=== PATIENT | female | born 1940 | race Caucasian/White ===

== ENCOUNTER 2022-06-28 16:34 | Emergency (ER) | payer MEDICARE, BC ==
[2022-06-28 16:46] VITALS: TEMP 98.4
[2022-06-28] MEDS ORDERED: ONDANSETRON 4 MG/2 ML VIAL IVP STA (16:56)
[2022-06-28] MEDS ORDERED: PANTOPRAZOLE 40 MG/10 ML VIAL IVP STA (16:56)
[2022-06-28 17:14] LABS: Anisocytosis Slight; Basophils # (A) 0.1 k/uL (0-0.2); Basophils % (A) 1 %; Eosinophils % (A) 1 %; HCT 39.5 % (34.0-46.0); Hypochromasia Slight; Lymphocytes # (A) 1.6 k/uL (1.0-4.8); Lymphocytes % (A) 20 %; MCH 28.6 pg (25.0-35.0); MCV 86.7 fL (80.0-100.0); Mean Platelet Volume 7.5; Monocytes # (A) 0.3 k/uL (0-1.0); Monocytes % (A) 4 %; Neutrophils # (A) 5.9 k/uL (1.3-7.7); Neutrophils % (A) 74 %; Platelet Count 644 k/uL (150-450); RBC 4.55 m/uL (3.80-5.40); RDW 16.9 % (11.5-15.5); WBC 7.9 k/uL (3.8-10.6)
[2022-06-28 17:23] LABS: Albumin 3.4 g/dL (3.5-5.0); Calcium 8.7 mg/dL (8.4-10.2); Magnesium 1.7 mg/dL (1.6-2.3); Total Bilirubin 0.7 mg/dL (0.2-1.3); Total Protein 6.6 g/dL (6.3-8.2)
[2022-06-28 17:30] LABS: INR 1.1 (<1.2); Partial Thromboplastin Time 22.5 sec (22.0-30.0); Prothrombin Time 11.7 sec (9.0-12.0)
--- NOTE | 2022-06-28 18:35 | ED ---
GI Bleed HPI - General Chief complaint: GI Bleed Stated complaint: GI Bleed Time Seen by Provider: 06/28/22 16:36 Source: patient Mode of arrival: EMS Limitations: no limitations - History of Present Illness Initial comments: 82-year-old female with past medical history of A. fib not on any anticoagulation, coronary artery disease on Plavix, hemorrhagic anemia secondary to bleeding duodenal ulcer who presents to the emergency department with coffee-ground emesis. She resides at [facility]. She had an episode of coffee ground emesis at 11:00 this morning. She was provided with a Carafate. She then had a second episode around 3:15 and was transferred to our facility for further evaluation. Patient is in A. fib before EMS however when tr ansferred for facility and placed on the monitor she does convert to normal sinus rhythm. The patient has a history of mild dementia and therefore cannot provide much history. She denies that she is in any pain. Upon reading the patient's chart she was hospitalized in March where she had an EGD that demonstrated a duodenal ulcer and gastritis. She had significant blood loss with anemia. Patient denies any black or bloody stools to me. No chest pain or shortness of breath. Remainder of HPI is limited - Related Data Allergies Allergy/AdvReac Type Severity Reaction Status Date / Time No Known Allergies Allergy Verified 06/28/22 16:46 Review of Systems ROS Statement: Those systems with pertinent positive or pertinent negative responses have been documented in the HPI. ROS Other: All systems not noted in ROS Statement are negative. Past Medical History Past Medical History: Atrial Fibrillation, Coronary Artery Disease (CAD), Chest Pain / Angina, Hypertension, Myocardial Infarction ([place]), Myocardial Infarction (non Q-wave) Additional Past Medical History / Comment(s): dementia hemmorhagic anemia History of Any Multi-Drug Resistant Organisms: None Reported Past Psychological History: Depression Smoking Status: Former smoker Past Alcohol Use History: None Reported Past Drug Use History: None Reported General Exam Limitations: altered mental status (poor historian) General appearance: alert, in no apparent distress Head exam: Present: atraumatic, normocephalic, normal inspection Eye exam: Present: normal appearance, PERRL, EOMI. Absent: scleral icterus, conjunctival injection, periorbital swelling ENT exam: Present: normal exam, mucous membranes moist Neck exam: Present: normal inspection. Absent: tenderness, meningismus, lymphadenopathy Respiratory exam: Present: normal lung sounds bilaterally. Absent: respiratory distress, wheezes, rales, rhonchi, stridor Cardiovascular Exam: Present: regular rate, normal rhythm, normal heart sounds. Absent: systolic murmur, diastolic murmur, rubs, gallop, clicks GI/Abdominal exam: Present: soft, normal bowel sounds. Absent: distended, tenderness, guarding, rebound, rigid Extremities exam: Present: normal inspection, full ROM, normal capillary refill. Absent: tenderness, pedal edema, joint swelling, calf tenderness Back exam: Present: normal inspection Neurological exam: Present: alert, CN II-XII intact Psychiatric exam: Present: normal affect, normal mood Skin exam: Present: warm, dry, intact, normal color. Absent: rash Course Vital Signs 06/28/22 06/28/22 06/28/22 16:40 16:54 17:28 Temperature 98.4 F Pulse Rate 81 88 79 Respiratory 16 16 20 Rate Blood Pressure 134/78 134/78 134/74 O2 Sat by Pulse 96 98 99 Oximetry 06/28/22 20:34 Temperature Pulse Rate 71 Respiratory 18 Rate Blood Pressure 129/75 O2 Sat by Pulse 98 Oximetry - Reevaluation(s) Reevaluation #1: Spoke with [facility] - they can accept the patient however the patient will be placed on a wait list. Unsure if the patient would be able to transfer to their facility tonight or even tomorrow. I informed the daughter of this and she was agreeable to try [facility] for transfer 06/28/22 18:15 Reevaluation #2: Spoke with [facility] who accepted the patient for transport. Accepting [facility] is Dr. Burton. EMS paged 06/28/22 18:25 Reevaluation #3: Patient's daughter has informed me that she has changed her mind. Would prefer to go to [facility] as this facility is closer for her brother to commute to. Informed her that we have an accepting hospital at [facility] who can take her immediately. She would like me to cancel this transfer and try [facility] 06/28/22 18:30 Reevaluation #4: Spoke with [facility] who is on a wait list. Longest patient has been waiting 7 days for transfer 06/28/22 19:30 Reevaluation #5: [facility] is not accepting patients for transfer at this time 06/28/22 19:38 Spoke with the patient's daughter again about transfer refusals. She is agreeable to go to [facility] 06/28/22 19:45 Medical Decision Making - Medical Decision Making Upon arrival patient was placed into room 6. A thorough history and physical exam was performed. IV access established. Laboratory studies were conducted. Patient was given 4 mg of Zofran and 80 mg of proton. Laboratory studies are reviewed by myself. Hemoglobin stable at 13. Patient is hemodynamically stable on vitals. I did discuss diagnosis, differential and treatment options. Informed the patient that I would like to observe her in the hospital however we do not have GI capabilities at our facility. If patient were hospitalized at our facility there be significant risk if the patient would start bleeding. Family understood this. Attempted transfer to multiple facilities however daughter did change her mind after acceptance to [facility]. We additionally called [facility] before daughter agreed to transfer to [facility]. Accepting physician is Dr. Burton. COBRA forms were signed. Patient and her daughter were aware of the risks and benefits of transfer patient was transferred in stable condition - Lab Data Result diagrams: 06/28/22 16:58 06/28/22 16:58 Lab Results 06/28/22 06/28/22 06/28/22 Range/Units 16:48 16:58 16:58 WBC 7.9 (3.8-10.6) k/uL RBC 4.55 (3.80-5.40) m/uL Hgb 13.0 (11.4-16.0) gm/dL Hct 39.5 (34.0-46.0) % MCV 86.7 (80.0-100.0) fL MCH 28.6 (25.0-35.0) pg MCHC 33.0 (31.0-37.0) g/dL RDW 16.9 H (11.5-15.5) % Plt Count 644 H (150-450) k/uL MPV 7.5 Neutrophils % 74 % Lymphocytes % 20 % Monocytes % 4 % Eosinophils % 1 % Basophils % 1 % Neutrophils # 5.9 (1.3-7.7) k/uL Lymphocytes # 1.6 (1.0-4.8) k/uL Monocytes # 0.3 (0-1.0) k/uL Eosinophils # 0.0 (0-0.7) k/uL Basophils # 0.1 (0-0.2) k/uL Hypochromasia Slight Anisocytosis Slight PT 11.7 (9.0-12.0) sec INR 1.1 (<1.2) APTT 22.5 (22.0-30.0) sec Sodium (137-145) mmol/L Potassium (3.5-5.1) mmol/L Chloride (98-107) mmol/L Carbon Dioxide (22-30) mmol/L Anion Gap mmol/L BUN (7-17) mg/dL Creatinine (0.52-1.04) mg/dL Est GFR (CKD-EPI)AfAm (>60 ml/min/1.73 sqM) Est GFR (CKD-EPI)NonAf (>60 ml/min/1.73 sqM) Glucose (74-99) mg/dL Plasma Lactic Acid Cipriano (0.7-2.0) mmol/L Calcium (8.4-10.2) mg/dL Magnesium (1.6-2.3) mg/dL Total Bilirubin (0.2-1.3) mg/dL AST (14-36) U/L ALT (4-34) U/L Alkaline Phosphatase (38-126) U/L Troponin I (0.000-0.034) ng/mL Total Protein (6.3-8.2) g/dL Albumin (3.5-5.0) g/dL Lipase (23-300) U/L Blood Type O Positive Blood Type Confirm Blood Type Recheck No Previous Record Bld Type Recheck Status CABO Indicated Antibody Screen NEGATIVE Spec Expiration Date 07/01/2022 - 234706/28/22 06/28/22 06/28/22 Range/Units 16:58 16:58 16:58 WBC (3.8-10.6) k/uL RBC (3.80-5.40) m/uL Hgb (11.4-16.0) gm/dL Hct (34.0-46.0) % MCV (80.0-100.0) fL MCH (25.0-35.0) pg MCHC (31.0-37.0) g/dL RDW (11.5-15.5) % Plt Count (150-450) k/uL MPV Neutrophils % % Lymphocytes % % Monocytes % % Eosinophils % % Basophils % % Neutrophils # (1.3-7.7) k/uL Lymphocytes # (1.0-4.8) k/uL Monocytes # (0-1.0) k/uL Eosinophils # (0-0.7) k/uL Basophils # (0-0.2) k/uL Hypochromasia Anisocytosis PT (9.0-12.0) sec INR (<1.2) APTT (22.0-30.0) sec Sodium 142 (137-145) mmol/L Potassium 4.0 (3.5-5.1) mmol/L Chloride 106 (98-107) mmol/L Carbon Dioxide 25 (22-30) mmol/L Anion Gap 11 mmol/L BUN 17 (7-17) mg/dL Creatinine 0.92 (0.52-1.04) mg/dL Est GFR (CKD-EPI)AfAm 66 (>60 ml/min/1.73 sqM) Est GFR (CKD-EPI)NonAf 58 (>60 ml/min/1.73 sqM) Glucose 94 (74-99) mg/dL Plasma Lactic Acid Cipriano 1.8 (0.7-2.0) mmol/L Calcium 8.7 (8.4-10.2) mg/dL Magnesium 1.7 (1.6-2.3) mg/dL Total Bilirubin 0.7 (0.2-1.3) mg/dL AST 20 (14-36) U/L ALT 13 (4-34) U/L Alkaline Phosphatase 105 (38-126) U/L Troponin I <0.012 (0.000-0.034) ng/mL Total Protein 6.6 (6.3-8.2) g/dL Albumin 3.4 L (3.5-5.0) g/dL Lipase 40 (23-300) U/L Blood Type Blood Type Confirm Blood Type Recheck Bld Type Recheck Status Antibody Screen Spec Expiration Date 06/28/22 Range/Units 17:01 WBC (3.8-10.6) k/uL RBC (3.80-5.40) m/uL Hgb (11.4-16.0) gm/dL Hct (34.0-46.0) % MCV (80.0-100.0) fL MCH (25.0-35.0) pg MCHC (31.0-37.0) g/dL RDW (11.5-15.5) % Plt Count (150-450) k/uL MPV Neutrophils % % Lymphocytes % % Monocytes % % Eosinophils % % Basophils % % Neutrophils # (1.3-7.7) k/uL Lymphocytes # (1.0-4.8) k/uL Monocytes # (0-1.0) k/uL Eosinophils # (0-0.7) k/uL Basophils # (0-0.2) k/uL Hypochromasia Anisocytosis PT (9.0-12.0) sec INR (<1.2) APTT (22.0-30.0) sec Sodium (137-145) mmol/L Potassium (3.5-5.1) mmol/L Chloride (98-107) mmol/L Carbon Dioxide (22-30) mmol/L Anion Gap mmol/L BUN (7-17) mg/dL Creatinine (0.52-1.04) mg/dL Est GFR (CKD-EPI)AfAm (>60 ml/min/1.73 sqM) Est GFR (CKD-EPI)NonAf (>60 ml/min/1.73 sqM) Glucose (74-99) mg/dL Plasma Lactic Acid Cipriano (0.7-2.0) mmol/L Calcium (8.4-10.2) mg/dL Magnesium (1.6-2.3) mg/dL Total Bilirubin (0.2-1.3) mg/dL AST (14-36) U/L ALT (4-34) U/L Alkaline Phosphatase (38-126) U/L Troponin I (0.000-0.034) ng/mL Total Protein (6.3-8.2) g/dL Albumin (3.5-5.0) g/dL Lipase (23-300) U/L Blood Type Blood Type Confirm O Positive Blood Type Recheck Bld Type Recheck Status Antibody Screen Spec Expiration Date - EKG Data EKG Comments: EKG demonstrates a sinus rhythm with a rate of 83. DE interval 113. QRS 80. QTC of 435. No acute ST segment elevations or depressions Critical Care Time Critical Care Time: Yes Critical Care Time: 40 minutes Disposition Clinical Impression: Upper gastrointestinal hemorrhage, Hematochezia Disposition: TRANSFER TO PSYCH HOSP/UNIT Condition: Stable Is patient prescribed a controlled substance at d/c from ED?: No Referrals: Sherri Jordan DO [Primary Care Provider] - 1-2 days Time of Disposition: 19:26
[2022-06-28 20:35] VITALS: BP 129/75; PULSE 71; RESP 18
== END 2022-06-28 20:54 ==
LOC: EC 16:34
DX: K92.1 Melena (principal); K92.2 Gastrointestinal hemorrhage, unspecified; I48.91 Unspecified atrial fibrillation; I25.10 Atherosclerotic heart disease of native coronary artery without angina pectoris; I10 Essential (primary) hypertension; I25.2 Old myocardial infarction; F32.A Depression, unspecified; Z87.891 Personal history of nicotine dependence
CPT/HCPCS: 99291 ×2; 96374 ×2; 96375 ×2; 36415; 99285; 93005; 86900; 86901; 80053; 83605; 83690; 83735; 84484; 85025; 85610; 85730; 86850; J2405; C9113; 96372; 99283